=== PATIENT | male | born 1990 | race Caucasian/White ===

== ENCOUNTER 2025-04-07 06:03 | Emergency (ER) | payer OTHER, SELFPAY ==
[2025-04-07 06:46] LABS: Absolute Lymphocytes (CBC) 2.3 K/uL (0.7-4.9); Hematocrit 43.6 % (39.6-49.0); Hemoglobin 14.8 g/dL (13.6-17.9); MCH 27.0 pg (27.0-35.0); MCHC 34.0 g/dL (32.0-36.0); MCV 79.6 fL (80-100); MPV 9.5 fL (7.6-11.3); Nucleated RBC Absolute Count 0.0 (0-0); Nucleated Red Blood Cells % 0.0 % (0-0); RBC Red Blood Cell Count 5.48 M/uL (4.33-5.43); White Blood Count 8.70 thou/uL (4.3-10.9)
[2025-04-07] MEDS ORDERED: KETOROLAC 30 MG/ML INJ ONE (06:46)
[2025-04-07] MEDS ORDERED: NA CHLORIDE 0.9% 1,000 ML ONE (06:47)
[2025-04-07] MEDS ORDERED: MECLIZINE HCL 12.5 MG TAB ONE (06:47)
[2025-04-07] MEDS ORDERED: ONDANSETRON 4 MG (ODT) TAB ONE (06:47)
[2025-04-07 07:12] LABS: ALT/SGPT 48 U/L (16-61); Albumin 3.8 g/dL (3.4-5.0); Albumin/Globulin Ratio 1.0 (1.1-1.8); Alkaline Phosphatase 84 U/L (45-117); Anion Gap 11.5 mEq/L (5.0-15.0); BUN Blood Urea Nitrogen 9 mg/dL (7-18); Globulin 3.7 g/dL (2.3-3.5); Glucose Level 172 mg/dL (74-106); NT PRO-BNP 29 pg/mL (<125); Troponin High Sensitivity 4.3 pg/mL (<58.9)
[2025-04-07 07:13] LABS: AST/SGOT 27 U/L (15-37); Bilirubin Indirect, Calculated 0.1 mg/dL (0.2-0.8); Magnesium 2.2 mg/dL (1.6-2.4); Potassium 3.5 mEq/L (3.5-5.1)
[2025-04-07 07:53] LABS: PT Prothrombin Time 12.5 SECONDS (10-13.0); Protime INR 1.11
--- NOTE | 2025-04-07 08:05 | RAD REPORT ---
EXAMINATION: ONE VIEW CHEST XR CLINICAL INDICATION: Male, 35 years old.,CHEST PAIN TECHNIQUE: Frontal chest projection is submitted. Examination is limited by patient positioning and t echnique. COMPARISON: No prior exam. FINDINGS: The lungs are grossly clear although suboptimal inspiratory effort somewhat limits evaluation. No pn eumothorax or sizable effusion. The heart is normal in size. Mediastinal contours are unremarkable. IMPRESSION: No acute intrathoracic abnormalities.
[2025-04-07 08:33] LABS: Influenza A Ag Negative; Influenza B Ag Negative; SARS-CoV-2 Antigen Rapid Res Negative (Negative)
--- NOTE | 2025-04-07 08:51 | ER ---
Nurse's Notes [facility] Name: Francisco Martinez Age: 35 yrs Sex: Male : 1990 Arrival Date: 04/07/2025 Time: 06:03 Bed 20 Private MD: Diagnosis: Shortness of breath, viral illness Presentation: 04/07 06:22 Chief complaint: Patient states: i WOKE UP THIS MORNING FELLING SHORT OF BREATH, i bm8 THINK I WAS HAVING A PANIC ATTACK. Coronavirus screen: At this time, the client does not indicate any symptoms associated with coronavirus-19. Ebola Screen: Patient negative for fever greater than or equal to 101.5 degrees Fahrenheit, and additional compatible Ebola Virus Disease symptoms Patient denies exposure to infectious person. Patient denies travel to an Ebola-affected area in the 21 days before illness onset. No symptoms or risks identified at this time. Initial Sepsis Screen: Does the patient meet any 2 criteria? No. Patient's initial sepsis screen is negative. Does the patient have a suspected source of infection? No. Patient's initial sepsis screen is negative. Risk Assessment: Do you want to hurt yourself or someone else?. Onset of symptoms was April 07, 2025 at 04:30. 06:22 Method Of Arrival: Ambulatory bm8 06:22 Acuity: ALESSANDRA 3 bm8 Triage Assessment: 06:27 General: Appears in no apparent distress. comfortable, Behavior is cooperative, bm8 appropriate for age, anxious. Pain: Complains of pain in chest Pain currently is 3 out of 10 on a pain scale. EENT: No deficits noted. No signs and/or symptoms were reported regarding the EENT system. Neuro: No deficits noted. Level of Consciousness is awake, alert, obeys commands, Oriented to person, place, time, situation, Appropriate for age. Cardiovascular: Reports palpitations, shortness of breath, Heart tones S1 S2 present Capillary refill < 3 seconds in bilateral fingers Patient's skin is warm and dry. Rhythm is sinus rhythm. Respiratory: Reports shortness of breath at rest Airway is patent Respiratory effort is even, unlabored, Respiratory pattern is regular, symmetrical, Breath sounds are clear bilaterally. Onset: The symptoms/episode began/occurred suddenly, the patient has mild shortness of breath. GI: No deficits noted. No signs and/or symptoms were reported involving the gastrointestinal system. : No deficits noted. No signs and/or symptoms were reported regarding the genitourinary system. Derm: No deficits noted. No signs and/or symptoms reported regarding the dermatologic system. Musculoskeletal: No deficits noted. No signs and/or symptoms reported regarding the musculoskeletal system. Historical: - Allergies: 06:27 No Known Allergies; bm8 - Home Meds: 06:27 None [Active]; bm8 - PMHx: 06:27 None; bm8 - PSHx: 06:27 None; bm8 - Immunization history:: Adult Immunizations up to date. - Infectious Disease History:: Denies. - Social history:: Smoking status: Reported history of juuling and/or vaping. Patient/guardian denies using alcohol, street drugs. - Family history:: not pertinent. Screenin:36 [facility] ED Fall Risk Assessment (Adult) History of falling in the last 3 months, bm8 including since admission No falls in past 3 months (0 pts) Confusion or Disorientation No (0 pts) Intoxicated or Sedated No (0 pts) Impaired Gait No (0 pts) Mobility Assist Device Used No (0 pt) Altered Elimination No (0 pt) Score/Fall Risk Level 0 - 2 = Low Risk Oriented to surroundings, Maintained a safe environment, Educated pt \T\ family on fall prevention, incl call for assistance when getting out of bed, Assessed \T\ reinforced patient's understanding of fall precautions, Hourly rounding (assess needs \T\ fall precautionary measures) done, Used ambulatory aids as needed (educated on \T\ assisted with), Used gait belt as appropriate. Abuse screen: Denies threats or abuse. Nutritional screening: No deficits noted. Tuberculosis screening: No symptoms or risk factors identified. Assessment: 06:36 Reassessment: see triage assessment. bm8 07:37 Reassessment: Patient and/or family updated on plan of care and expected duration. Pain ap3 level reassessed. General: Behavior is anxious. Pain: Complains of pain in back and chest. Neuro: Level of Consciousness is awake, alert, obeys commands, Oriented to person, place, time, situation, Appropriate for age. Neuro: Reports dizziness. Cardiovascular: Patient's skin is warm and dry. Cardiovascular: Reports chest pain. Respiratory: Reports shortness of breath Airway is patent Respiratory effort is even, unlabored, Respiratory pattern is regular, symmetrical. 08:32 Reassessment: Patient appears in no apparent distress at this time. Patient and/or hb family updated on plan of care and expected duration. Pain level reassessed. Patient is alert, oriented x 3, equal unlabored respirations, skin warm/dry/pink. Vital Signs: 06:22 BP 149 / 89; Pulse 99; Resp 18; Temp 98.8; Pulse Ox 99% on R/A; Weight 102.06 kg; bm8 Height 5 ft. 7 in. ; Pain 3/10; 08:06 BP 137 / 84; Pulse 87; Resp 18; Pulse Ox 100% on R/A; ap3 08:30 BP 120 / 76; Pulse 81; Resp 17; Pulse Ox 97% on R/A; hb 06:22 Body Mass Index 35.24 (102.06 kg, 170.18 cm) bm8 06:22 Pain Scale: Adult bm8 [place] Coma Score: 06:36 Eye Response: spontaneous(4). Motor Response: obeys commands(6). Verbal Response: bm8 oriented(5). Total: 15. 07:12 Eye Response: spontaneous(4). Motor Response: obeys commands(6). Verbal Response: sp4 oriented(5). Total: 15. ED Course: 06:09 Patient arrived in ED. gm2 06:16 Darryl Jordan MD is Attending Physician. sp4 06:21 Aliyah rTejo, RN is Primary Nurse. zm 06:27 Triage completed. bm8 06:31 Arm band placed on right wrist. bm8 06:31 No provider procedures requiring assistance completed. EKG done, by ED staff, reviewed bm8 by Darryl Jordan MD. Patient maintains SpO2 saturation greater than 95% on room air. Response to oxygen therapy: symptoms improved. 06:36 Patient has correct armband on for positive identification. Bed in low position. Call bm8 light in reach. Side rails up X 1. Client placed on continuous cardiac and pulse oximetry monitoring. NIBP monitoring applied. Pulse ox on. NIBP on. Door closed. Noise minimized. Warm blanket given. Pillow given. Verbal reassurance given. Head of bed elevated. 06:38 Initial lab(s) drawn, by me, sent to lab. Inserted saline lock: 18 gauge in right zm antecubital area, using aseptic technique. Blood collected. Flushed with 10 mL NS. 06:40 Basic Metabolic Panel Sent. zm 06:40 CBC with Diff Sent. zm 06:40 LFT's Sent. zm 06:41 Magnesium Sent. zm 06:41 NT PRO-BNP Sent. zm 06:41 PT-INR Sent. zm 06:41 Troponin HS Sent. zm 06:54 XRAY Chest (1 view) In Process Unspecified. EDMS 07:03 Report given to LUIS ARMANDO Watts. zm 07:07 Attending Physician role handed off by Darryl Jordan MD sp3 07:07 Magui Cheng MD is Attending Physician. sp3 07:18 Attending Physician role handed off by Magui Cheng MD sp4 07:18 Darryl Jordan MD is Attending Physician. sp4 07:38 playground monitor on. ap3 08:15 Attending Physician role handed off by Darryl Jordan MD sp3 08:15 Magui Cheng MD is Attending Physician. sp3 09:06 Provided Education on: discharge intructions. ap3 09:06 IV discontinued, intact, bleeding controlled, No redness/swelling at site. Pressure ap3 dressing applied. Administered Medications: 06:54 Drug: NS 0.9% IV 1000 ml IV at 1 bolus Per protocol; to be given as a bolus over 60 zm minutes Route: IV; Rate: 1 bolus; Site: right antecubital; 08:22 Follow up: Response: No adverse reaction; IV Status: Completed infusion; IV Intake: hb 1000ml 06:54 Drug: Ketorolac IVP 30 mg IVP once Route: IVP; Site: right antecubital; zm 08:00 Follow up: Response: No adverse reaction hb 06:54 Drug: Ondansetron PO 4 mg PO once Route: PO; zm 08:00 Follow up: Response: No adverse reaction hb 06:54 Drug: Meclizine PO 25 mg PO once Route: PO; zm 08:00 Follow up: Response: No adverse reaction hb Medication: 06:36 VIS not applicable for this client. bm8 Intake: 08:22 IV: 1000ml; Total: 1000ml. hb Outcome: 08:50 Discharge ordered by . sp3 09:06 Discharged to home ambulatory, ap3 09:06 Condition: good 09:06 Discharge instructions given to patient, Instructed on discharge instructions, follow up and referral plans. Demonstrated understanding of instructions, follow-up care, :06 Patient left the ED. ap3 Signatures: Dispatcher [employer] EDEmily Short, RN Stefanie Ni RN RN ap3 Magui Cheng MD MD sp3 Aliyah Trejo RN RN zm Potepalov, Sergey, MD MD sp4 Tessie Delatorre 2 Carlos Anna RN RN bm8
--- NOTE | 2025-04-07 08:51 | EDPHYS ---
Physician Documentation [facility] Name: Francisco Martinez Age: 35 yrs Sex: Male : 1990 Arrival Date: 04/07/2025 Time: 06:03 Bed 20 Private MD: ED Physician Magui Cheng HPI: 04/07 06:15 This 35 yrs old Other Race Male presents to ER via Unassigned with complaints of sp4 Dizziness, Shortness Of Breath. 07:12 Very pleasant 35-year-old male currently unemployed presents with acute onset of sp4 shortness of breath starting this morning.. 07:12 Patient additionally reports dizziness, vertigo, tingling throughout, chills and sp4 bodyaches. History of degenerative disc disease of the lumbar spine, history of anxiety and panic attacks.. Historical: - Allergies: 06:27 No Known Allergies; bm8 - Home Meds: 06:27 None [Active]; bm8 - PMHx: 06:27 None; bm8 - PSHx: 06:27 None; bm8 - Immunization history:: Adult Immunizations up to date. - Infectious Disease History:: Denies. - Social history:: Smoking status: Reported history of juuling and/or vaping. Patient/guardian denies using alcohol, street drugs. - Family history:: not pertinent. ROS: 07:12 Constitutional: Negative for fever, chills, and weight loss, positive for dyspnea, sp4 positive for dizziness, positive for vertigo, positive for tingling, positive for chills, positive for aches. 07:12 All other systems are negative, Exam: 07:12 Constitutional: This is a well developed, well nourished patient who is awake, alert, sp4 and in no acute distress. Head/Face: Normocephalic, atraumatic. Eyes: Pupils equal round and reactive to light, extra-ocular motions intact. Lids and lashes normal. Conjunctiva and sclera are not injected. Cornea within normal limits. Periorbital areas with no swelling, redness, or edema. ENT: Nares patent. No nasal discharge, no septal abnormalities noted. Tympanic membranes are normal and external auditory canals are clear. Oropharynx with no redness, swelling, or masses, exudates, or evidence of obstruction, uvula midline. Mucous membranes moist. Neck: Trachea midline, no thyromegaly or masses palpated, and no cervical lymphadenopathy. Supple, full range of motion without nuchal rigidity, or vertebral point tenderness. Chest/axilla: Normal chest wall appearance and motion. Nontender with no deformity. No lesions are appreciated. Cardiovascular: Regular rate and rhythm with a normal S1 and S2. No gallops, murmurs, or rubs. No pulse deficits. Respiratory: Lungs have equal breath sounds bilaterally, clear to auscultation and percussion. No rales, rhonchi or wheezes noted. No increased work of breathing, no retractions or nasal flaring. Abdomen/GI: Soft, with normal bowel sounds. No distension or tympany. No guarding or rebound. No evidence of tenderness throughout. Back: No spinal tenderness. No costovertebral tenderness. Skin: Warm, dry with normal turgor. Normal color with no rashes, no lesions, and no evidence of cellulitis. MS/ Extremity: Pulses equal, no cyanosis. Neurovascular intact. Full, normal range of motion. Neuro: Awake and alert, GCS 15, oriented to person, place, time, and situation. Cranial nerves II-XII grossly intact. Motor strength 5/5 in all extremities. Sensory grossly intact. Psych: Awake, alert, with orientation to person, place and time. Behavior, mood, and affect are within normal limits 07:12 ECG was reviewed by the Attending Physician. EKG at 0 619 Vital Signs: 06:22 BP 149 / 89; Pulse 99; Resp 18; Temp 98.8; Pulse Ox 99% on R/A; Weight 102.06 kg; bm8 Height 5 ft. 7 in. ; Pain 3/10; 08:06 BP 137 / 84; Pulse 87; Resp 18; Pulse Ox 100% on R/A; ap3 08:30 BP 120 / 76; Pulse 81; Resp 17; Pulse Ox 97% on R/A; hb 06:22 Body Mass Index 35.24 (102.06 kg, 170.18 cm) bm8 06:22 Pain Scale: Adult bm8 [place] Coma Score: 06:36 Eye Response: spontaneous(4). Motor Response: obeys commands(6). Verbal Response: bm8 oriented(5). Total: 15. 07:12 Eye Response: spontaneous(4). Motor Response: obeys commands(6). Verbal Response: sp4 oriented(5). Total: 15. MDM: 06:16 Medical Screening Exam initiated sp4 07:16 Differential diagnosis: generalized weakness, idiopathic dizziness, near-syncope, sp4 syncope, vertigo. Data reviewed: vital signs, nurses notes, lab test result(s), EKG, radiologic studies, plain films. 07:17 Consideration of Admission/Observation Escalation of care including sp4 admission/observation considered. Transition of care: After a detail discussion of the patient's case, care is transferred to Magui Cheng MD. ED course: More Pending.. 08:49 ED course: Full workup negative we will safely discharge patient home at this time.. 3 04/07 06:25 Order name: Basic Metabolic Panel; Complete Time: 07:18 04/07 06:25 Order name: CBC with Diff; Complete Time: 07:07 4 04/07 06:25 Order name: LFT's; Complete Time: 07:18 04/07 06:25 Order name: Magnesium; Complete Time: 07:18 04/07 06:25 Order name: NT PRO-BNP; Complete Time: 07:18 4 04/07 06:25 Order name: PT-INR; Complete Time: 08:15 04/07 06:25 Order name: Troponin HS; Complete Time: 07:18 4 04/07 06:43 Order name: COVID-19 Ag + Flu A+B Ag; Complete Time: 08:39 4 04/07 06:25 Order name: XRAY Chest (1 view); Complete Time: 08:15 04/07 06:25 Order name: Cardiac monitoring; Complete Time: 06:40 04/07 06:25 Order name: EKG - Nurse/Tech; Complete Time: 06:40 04/07 06:25 Order name: IV Saline Lock; Complete Time: 06:40 04/07 06:25 Order name: Labs collected and sent; Complete Time: 06:40 04/07 06:25 Order name: O2 Per Protocol; Complete Time: 06:40 04/07 06:25 Order name: O2 Sat Monitoring; Complete Time: 06:40 sp4 EC:19 Rate is 97 beats/min. Rhythm is regular, Normal Sinus Rhythm. QRS [place] is Normal. [place] sp4 interval is normal. QRS interval is normal. QT interval is normal. No Q waves. T waves are Normal. No ST changes noted. Clinical impression: Normal ECG. Interpreted by me. Reviewed by me. Administered Medications: 06:54 Drug: NS 0.9% IV 1000 ml IV at 1 bolus Per protocol; to be given as a bolus over 60 zm minutes Route: IV; Rate: 1 bolus; Site: right antecubital; 08:22 Follow up: Response: No adverse reaction; IV Status: Completed infusion; IV Intake: hb 1000ml 06:54 Drug: Ketorolac IVP 30 mg IVP once Route: IVP; Site: right antecubital; zm 08:00 Follow up: Response: No adverse reaction hb 06:54 Drug: Ondansetron PO 4 mg PO once Route: PO; zm 08:00 Follow up: Response: No adverse reaction hb 06:54 Drug: Meclizine PO 25 mg PO once Route: PO; zm 08:00 Follow up: Response: No adverse reaction hb Disposition Summary: 04/07/25 08:50 Discharge Ordered Notes: Location: Home sp3 Condition: Stable sp3 Diagnosis - Shortness of breath, viral illness sp3 Followup: sp3 - With: Private Physician - When: Upon discharge from the Emergency Department - Reason: Continuance of care Discharge Instructions: - Discharge Summary Sheet sp3 - Shortness of Breath, Adult sp3 Forms: - Medication Reconciliation Form sp3 - Antibiotic Education sp3 - Prescription Opioid Use sp3 - Patient Portal Instructions sp3 - Leadership Thank You Letter sp3 Signatures: Dispatcher [employer] EDMagui Phillips MD MD sp3 Aliyah Trejo, RN RN zm Darryl Jordan MD MD sp4 Carlos Anna, RN RN 8 Emily Dietrich RN Corrections: (The following items were deleted from the chart) 06:25 06:25 BASIC METABOLIC PANEL+C.LAB.BRZ ordered. EDMS EDMS 06:25 06:25 CBC+H.LAB.BRZ ordered. EDMS EDMS 06:25 06:25 HEPATIC FUNCTION+C.LAB.BRZ ordered. EDMS EDMS 06:25 06:25 MAGNESIUM+C.LAB.BRZ ordered. EDMS EDMS 06:25 06:25 PROBNP+C.LAB.BRZ ordered. EDMS EDMS 06: 06:25 PROTIME (+INR)+COAG.LAB.BRZ ordered. EDMS EDMS : 06:25 Troponin High Sensitivity+C.LAB.BRZ ordered. EDMS EDMS : 06:25 Chest Single View+RAD.RAD.BRZ ordered. EDMS EDMS
[2025-04-07 09:26] VITALS: TEMP 98.8
[2025-04-07 09:40] VITALS: BP 137/84; O2SAT 100
== END 2025-04-07 09:06 | disposition home or self-care (01) ==
LOC: ER 06:03
DX: B34.9 Viral infection, unspecified (principal); Z11.52 Encounter for screening for COVID-19
CPT/HCPCS: 36415; 71045; 80048; 80076; 83735; 83880; 84484; 85025; 85610; 87428; 93005; 96361; 96374; 99285; J7030; J8597; Q0162